=== PATIENT | female | born 1970 | race Two or more races ===

== ENCOUNTER 2022-07-21 15:59 | Emergency (ER) | payer OTHER ==
[~2022-07-21] VITALS: Ht 167.6 cm; Wt 99.8 kg
[2022-07-21] MEDS ORDERED: NEURONTIN300 MG (16:24)
[2022-07-21] MEDS ORDERED: LIPITOR40 M1 (16:24)
[2022-07-21] MEDS ORDERED: VASOTEC2.5 MG (16:24)
[2022-07-21] MEDS ORDERED: JANUMET 50-1,01 EACH (16:24)
== END 2022-07-21 17:27 | disposition home or self-care (01) ==
LOC: ER 15:59
DX: B34.9 Viral infection, unspecified (principal); R53.81 Other malaise

== ENCOUNTER 2022-12-27 13:19 | Emergency (ER) | payer OTHER ==
[~2022-12-27] VITALS: Ht 167.6 cm; Wt 99.8 kg
[~2022-12-27 13:19] MED LIST: JANUMET 50-1,01 EACH; LIPITOR40 M1; NEURONTIN300 MG; VASOTEC2.5 MG
[2022-12-27 14:16] LABS: MEAN CELL VOLUME 87.1 fL (80.00-100.00); MEAN CORPUSCULAR HEMOGLOBIN 29.7 pg (27.00-32.0); MEAN CORPUSCULAR HGB CONC 34.1 g/dl (32.0-36.0); PLATELET COUNT 229 K/uL (150-450); RED BLOOD COUNT 5.05 M/uL (4.00-6.00); RED CELL DISTRIBUTION WIDTH 13.9 % (11.5-14.5)
== END 2022-12-27 15:26 | disposition home or self-care (01) ==
LOC: ER 13:19
DX: J06.9 Acute upper respiratory infection, unspecified (principal); Z20.822 Contact with and (suspected) exposure to COVID-19; E11.9 Type 2 diabetes mellitus without complications; Z79.84 Long term (current) use of oral hypoglycemic drugs

== ENCOUNTER 2023-03-03 12:17 | Emergency (ER) | payer OTHER ==
[~2023-03-03] VITALS: Ht 167.6 cm; Wt 99.8 kg
[2023-03-03] MEDS ORDERED: GABAPENTIN800 M1 PO (12:46)
[2023-03-03] MEDS ORDERED: GLIMEPIRIDE1 M1 PO (12:46)
[2023-03-03] MEDS ORDERED: LORAZEPAM2 MG PO (12:47)
[2023-03-03] MEDS ORDERED: METFORMIN HCL1000 M2 PO (12:47)
[2023-03-03] MEDS ORDERED: RESTORIL30 MG PO (12:47)
[2023-03-03 13:34] LABS: HEMATOCRIT 44.2 % (36.0-45.00); HEMOGLOBIN 14.9 g/dL (12.0-15.00); MEAN CELL VOLUME 87.6 fL (80.00-100.00); MEAN CORPUSCULAR HEMOGLOBIN 29.6 pg (27.00-32.0); MEAN CORPUSCULAR HGB CONC 33.7 g/dl (32.0-36.0); PLATELET COUNT 207 K/uL (150-450); RED BLOOD COUNT 5.05 M/uL (4.00-6.00); RED CELL DISTRIBUTION WIDTH 14.3 % (11.5-14.5)
[2023-03-03 13:43] LABS: URINE APPEARANCE Clear; URINE BILIRRUBIN Negative (NEGATIVE); URINE BLOOD Negative; URINE COLOR Yellow; URINE LEUKOCYTE Negative; URINE NITRATE Negative; URINE PROTEIN Negative (NEGATIVE); URINE UROBILINOGEN 0.2 E.U./dl
[2023-03-03 13:46] LABS: URINE BACTERIA 1727.2 uL (0.0-1933); URINE EPITHELIAL CELLS 66.4 uL (0.0-38.8); URINE RBC 5.4 uL (0.0-20.8); URINE WBC 61.2 uL (0.0-23.2)
[2023-03-03 14:09] LABS: URINE GLUCOSE >=1000 MG/DL (NEGATIVE)
[2023-03-03 14:30] LABS: ALBUMIN 3.6 gm/dL (3.4-5.0); BILIRUBIN TOTAL 0.47 mg/dL (0.3-1.2); BILIRUBIN,CONJUGATED 0.12 mg/dL (0.0-0.2); BILIRUBIN,UNCONJUGATED 0.35 mg/dL (0.0-0.6); CALCIUM 9.3 mg/dL (8.5-10.1); CREATININE SERUM 0.67 mg/dL (0.55-1.02); GFR 92.79; POTASSIUM 3.74 mEq/L (3.5-5.1); TOTAL PROTEIN 7.4 gm/dL (6.4-8.2)
== END 2023-03-03 18:12 | disposition home or self-care (01) ==
LOC: ER 12:18
PROVIDERS: General Practice
DX: E86.0 Dehydration (principal); K52.89 Other specified noninfective gastroenteritis and colitis; A08.8 Other specified intestinal infections; Z20.822 Contact with and (suspected) exposure to COVID-19; I10 Essential (primary) hypertension; E03.8 Other specified hypothyroidism; E11.9 Type 2 diabetes mellitus without complications; Z79.84 Long term (current) use of oral hypoglycemic drugs

== ENCOUNTER → 2023-03-20 | Emergency (ER) | payer OTHER ==
[~2023-03-20] VITALS: Ht 167.6 cm; Wt 99.8 kg
[~2023-03-20] MED LIST changes: +GABAPENTIN800 M1 PO; +GLIMEPIRIDE1 M1 PO; +LANTUS SOL100 UNIT/1; +LORAZEPAM2 MG PO; +METFORMIN HCL1000 M2 PO; +RESTORIL30 MG PO
== END | disposition left against medical advice (07) ==
LOC: ER 12:33
DX: Z53.21 Procedure and treatment not carried out due to patient leaving prior to being seen by health care provider (principal)

== ENCOUNTER → 2023-04-30 | Emergency (ER) | payer OTHER ==
[~2023-04-30] VITALS: Ht 167.6 cm; Wt 104.3 kg
[~2023-04-30] MED LIST changes: +KETOROLAC TROMETHAMINE 30 MG VIAL IM ONE; +MOBIC7.5 MG PO; +ORPHENADRINE CITRATE 30 MG/ML AMPUL IM ONE
== END | disposition left against medical advice (07) ==
LOC: ER 12:01
DX: G56.03 Carpal tunnel syndrome, bilateral upper limbs (principal); I49.8 Other specified cardiac arrhythmias; M19.90 Unspecified osteoarthritis, unspecified site; I10 Essential (primary) hypertension; K76.0 Fatty (change of) liver, not elsewhere classified; I87.2 Venous insufficiency (chronic) (peripheral)

== ENCOUNTER 2023-12-29 16:47 | Emergency (ER) | payer OTHER ==
[~2023-12-29] VITALS: Ht 167.6 cm; Wt 108.9 kg
[~2023-12-29 16:47] MED LIST changes: -KETOROLAC TROMETHAMINE 30 MG VIAL IM ONE; -ORPHENADRINE CITRATE 30 MG/ML AMPUL IM ONE
[2023-12-29] MEDS ORDERED: ACETAMINOPHEN 500 MG GEL..CAP PO ONE (18:00)
[2023-12-29 19:17] LABS: HEMATOCRIT 45.6 % (36.0-45.00); HEMOGLOBIN 15.2 g/dL (12.0-15.00); MEAN CELL VOLUME 87.6 fL (80.00-100.00); MEAN CORPUSCULAR HEMOGLOBIN 29.2 pg (27.00-32.0); MEAN CORPUSCULAR HGB CONC 33.3 g/dl (32.0-36.0); PLATELET COUNT 275 K/uL (150-450); RED BLOOD COUNT 5.21 M/uL (4.00-6.00); RED CELL DISTRIBUTION WIDTH 14.1 % (11.5-14.5)
[2023-12-29 19:17] LABS: PH,URINE 5.5 (5.0-8.0); URINE APPEARANCE Clear; URINE BILIRRUBIN Negative (NEGATIVE); URINE BLOOD Negative; URINE COLOR Yellow; URINE KETONE Negative (NEGATIVE); URINE LEUKOCYTE Negative; URINE NITRATE Negative; URINE PROTEIN Negative (NEGATIVE); URINE UROBILINOGEN 0.2 E.U./dl
[2023-12-29 19:21] LABS: URINE BACTERIA 3173.7 uL (0.0-1933); URINE EPITHELIAL CELLS 46.5 uL (0.0-38.8); URINE WBC 118.2 uL (0.0-23.2)
[2023-12-29 19:33] LABS: URINE GLUCOSE >=1000 MG/DL (NEGATIVE)
[2023-12-29 19:46] LABS: BILIRUBIN TOTAL 0.47 mg/dL (0.3-1.2); CALCIUM 9.3 mg/dL (8.5-10.1); CREATININE SERUM 0.89 mg/dL (0.55-1.02); GFR 66.6; GLOBULINA 3.8 G/DL (2.4-3.5); POTASSIUM 3.87 mEq/L (3.5-5.1); TOTAL PROTEIN 7.8 gm/dL (6.4-8.2)
== END 2023-12-29 20:27 | disposition home or self-care (01) ==
LOC: ER 16:49
PROVIDERS: General Practice
DX: N39.0 Urinary tract infection, site not specified (principal); E11.9 Type 2 diabetes mellitus without complications; Z79.4 Long term (current) use of insulin; Z79.84 Long term (current) use of oral hypoglycemic drugs; I10 Essential (primary) hypertension; Z20.822 Contact with and (suspected) exposure to COVID-19

== ENCOUNTER 2024-04-28 09:43 | Outpatient (CLI) | payer OTHER | END 2024-04-28 09:51 | disposition home or self-care (01) | LOC: SONOGRAMA 09:43 | DX: I10 Essential (primary) hypertension (principal); G56.01 Carpal tunnel syndrome, right upper limb ==

== ENCOUNTER → 2025-03-15 | Emergency (ER) | payer OTHER ==
[~2025-03-15] VITALS: Ht 165.1 cm; Wt 103.4 kg
[~2025-03-15] MED LIST changes: +ACETAMINOPHEN500 M1 PO; +BENZONATATE 100 MG CAPSULE PO ONE; +BUDESONIDE0.5 MG/2 M IH; +GILTUSS COUGH-118 M1 PO; +GUAIFEN/DEXTROMETHORPHAN/PE 10 ML BLIST.PACK PO ONE; +HUMALOG100 UNIT/1; +INSULIN LI100 UNIT/1 SQ; +IPRATROPIU0.2 MG/1 M IH; +OSEL75CA PO; +TOPROL XL25 M1 PO; +TUSNEL LIQUID178 ML PO; +ZEPBOUND2.5 MG/0.5 SQ; +ZITHROMAX500 MG PO; +ZYRTEC10 MG PO
[2025-03-15 13:49] VITALS: BP 117/78; O2SAT 98
[2025-03-15 20:30] LABS: BASO % 0.4 % (0.1-1.2); EOS # 0.36 (0.04-0.54); EOS % 5.0 % (0.7-7.0); LYMPH # 1.53 (1.18-3.74); LYMPH % 21.5 % (19.3-53.1); MEAN PLATELET VOLUME 9.60 fl (9.4-12.4); MONO # 0.62 (0.24-0.82); MONO % 8.7 % (4.7-12.5); NEUT # 4.57 (1.56-6.13); NEUT % 64.1 % (34.0-71.1); RED CELL DISTRIBUTION WIDTH 13.7 % (11.6-14.4)
[2025-03-15 21:57] LABS: COVID-19 AG NEGATIVE (NEGATIVE)
== END | disposition home or self-care (01) ==
LOC: ER 13:21
PROVIDERS: General Practice
DX: B34.8 Other viral infections of unspecified site (principal); N39.0 Urinary tract infection, site not specified; Z20.822 Contact with and (suspected) exposure to COVID-19; E11.9 Type 2 diabetes mellitus without complications; Z79.84 Long term (current) use of oral hypoglycemic drugs; Z79.4 Long term (current) use of insulin; I10 Essential (primary) hypertension; M79.7 Fibromyalgia; Z87.09 Personal history of other diseases of the respiratory system